=== PATIENT | female | born 2000 | race Hispanic/Latino ===

== ENCOUNTER 2018-02-12 22:06 | Emergency (ER) | payer SELFPAY ==
[2018-02-12 22:46] LABS: APPEARANCE,URINE Clear (CLEAR); BILIRUBIN,URINE Negative (NEGATIVE); COLOR,URINE Yellow (YELLOW); GLUCOSE, URINE (UA) Negative (NEGATIVE); KETONES,URINE 40 mg/dL (NEGATIVE); LEUKOCYTE ESTERASE ,URINE Negative (NEGATIVE); NITRATE,URINE Negative (NEGATIVE); OCCULT BLOOD,URINE Negative (NEGATIVE); PH,URINE 6.5 (5.0-8.0); PROTEIN,URINE Negative (NEGATIVE)
[2018-02-12] MEDS ORDERED: ONDANSETRON ODT 4 MG TAB ONE (22:48)
[2018-02-12 22:53] LABS: HCG,QUAL RESULT NEGATIVE (NEGATIVE)
[2018-02-12] MEDS ORDERED: KETOROLAC TROMETHAMINE 30MG/ML ONE (23:10)
[2018-02-12] MEDS ORDERED: HYOSCYAMINE SULFATE 0.125 MG TAB.SUBL SL ONE (23:10)
[2018-02-12] MEDS ORDERED: ACETAMINOPHEN 325 MG TAB ONE (23:10)
== END 2018-02-12 23:45 | disposition home or self-care (01) ==
LOC: EDH 22:06
DX: J11.1 Influenza due to unidentified influenza virus with other respiratory manifestations (principal); R11.2 Nausea with vomiting, unspecified; R19.7 Diarrhea, unspecified
CPT/HCPCS: 81003; 81025; 96372; 99284; J1885

== ENCOUNTER 2018-03-30 00:04 | Emergency (ER) | payer SELFPAY ==
[2018-03-30] MEDS ORDERED: IBUPROFEN 600 MG TABLET ONE (00:50)
== END 2018-03-30 01:54 | disposition home or self-care (01) ==
LOC: EDH 00:04
DX: S90.31XA Contusion of right foot, initial encounter (principal); X58.XXXA Exposure to other specified factors, initial encounter; Y93.89 Activity, other specified; Y92.89 Other specified places as the place of occurrence of the external cause; Y99.8 Other external cause status
CPT/HCPCS: 73630